=== PATIENT | male | born 1955 | race Caucasian/White ===

== ENCOUNTER 2020-02-25 14:11 | Outpatient (CLI) | payer BC ==
[~2020-02-25 14:11] MED LIST: Magnevist 469MG/ML 20 ML VIAL ONE
--- NOTE | 2020-02-25 16:22 | MRI ---
MR OF THE PELVIS WITH AND WITHOUT CONTRAST INDICATION: 64-year-old male with elevated PSA COMPARISON: None TECHNIQUE: Multiplanar, multisequence MR images were obtained of the pelvis with and without IV contr ast. 20 cc cc of MultiHance was utilized for the examination. The examination was reviewed on a separate [employer] 3-D workstation for multiplanar metric evaluation. FINDINGS: Prostate size: The prostate measured 4.9 x 3.4 x 3.5cm. 29.33 cc. Peripheral zone: No area of restricted diffusion is seen within the peripheral zone. Central zone: There is a 2.3 x 1.5 cm T2 hypointense, ADC hypointense lesion centered within the ante rior transitional zone of the right mid gland that extends into the right anterior fibromuscular stroma. There is abnormal dynamic contrast enhancement associated with this lesion. Neural vasculature: No evidence of neurovascular invasion Regional lymphadenopathy: None Dynamic contrast enhancement: Abnormal as above Osseous structures: No suspicious osseous lesion is identified. Additional findings: None.. IMPRESSION: 1. PIRADS 5- Very High (clinically significant cancer is highly likely to be present.)
== END 2020-02-25 14:12 | disposition home or self-care (01) ==
LOC: TBSIIMAG 14:11
PROVIDERS: ATTEND Urology
DX: R97.20 Elevated prostate specific antigen [PSA] (principal)
CPT/HCPCS: 72197; 82565

== ENCOUNTER 2020-05-05 07:26 | Outpatient (CLI) | payer BC, OTHER ==
[2020-05-05 11:34] LABS: #Basophils 0.1 thou/uL (0.0-0.2); #Eosinphils 0.9 thou/uL (0.0-0.7); #Lymphocytes 2.5 thou/uL (1.20-3.40); #Monocytes 0.8 thou/uL (0.11-0.59); #Neutrophils 4.4 thou/uL (1.40-6.50); %Basophils 1.5 % (0.0-1.0); %Eosinophils 10.8 % (0.0-10.0); %Lymphocytes 28.3 % (21.0-51.0); %Monocytes 8.7 % (0.0-10.0); %Neutrophils 50.7 % (42.0-75.0); Mean Corpuscular Hemoglobin 30.7 pg (27.0-31.0); Mean Platelet Volume 8.5 fL (7.4-10.4); Platelet Count 339 thou/uL (130-400); RBC Distribution Width 12.2 % (11.5-14.5); Red Blood Cell (RBC) Count 5.23 mill/uL (4.70-6.10); White Blood Cell (WBC) Count 8.7 thou/uL (4.8-10.8)
[2020-05-05 11:36] LABS: INR-International Normal Ratio 0.9; PTT 31.6 sec (22.9-36.1); Prothrombin Time 12.4 sec (12.0-14.7)
[2020-05-05 12:09] LABS: Bacteria/HPF None Seen HPF (None Seen); Bilirubin Negative (Negative); Blood, Urine Negative (Negative); Clarity Clear (Clear); Glucose, Urine (Dipstick) Normal (Negative); Ketone, Urine Negative (Negative); Leukocyte Negative Leu/uL (Negative); Nitrite Negative (Negative); Protein, Urine (Dipstick) Negative (Neg-Trace); Specific Gravity, Urine 1.025 (1.002-1.036); Squamous Epithelial None Seen HPF (0-3); Urobilinogen Normal mg/dL (Less than 2); WBC/HPF 0-3 HPF (0-3); pH, Urine 5.5 (5.0-9.0)
[2020-05-05 13:26] LABS: Anion Gap 18 mmol/L (10-20); BUN (Urea Nitrogen) 18 mg/dL (8.4-25.7); Calc. Creatinine Clearance 0 mL/min (70-130); Calcium 9.9 mg/dL (7.8-10.44); Carbon Dioxide 24 mmol/L (23-31); Chloride 103 mmol/L (98-107); Estimated GFR-MDRD 65; Glucose 85 mg/dL (80-115); Potassium 5.1 mmol/L (3.5-5.1); Sodium 140 mmol/L (136-145)
--- NOTE | 2020-05-05 18:06 | EKG ---
Test Reason : Blood Pressure : / mmHG Vent. Rate : 075 BPM Atrial Rate : 075 BPM P-R Int : 148 ms QRS Dur : 100 ms QT Int : 374 ms P-R-T Axes : 075 -20 041 degrees QTc Int : 417 ms Normal sinus rhythm Incomplete right bundle branch block Borderline ECG Confirmed by DR. Dean SOTO ([id number]) on 05/05/2020 6:05:55 PM Referred By: NATASHA Confirmed By:DR. Dean SOTO
[2020-05-05 19:11] LABS: SARS-CoV-2 MS2 Positive; SARS-CoV-2 N Gene Negative; SARS-CoV-2 S Gene Negative; SARS-CoV-2 by NAA Not Detected (NotDetected); SARS-CoV-2 orf1ab Negative
== END 2020-05-05 07:27 | disposition home or self-care (01) ==
LOC: LABBT 07:26
PROVIDERS: ATTEND Urology
DX: Z01.818 Encounter for other preprocedural examination (principal); R97.20 Elevated prostate specific antigen [PSA]; R92.2 Inconclusive mammogram; Z20.828 Contact with and (suspected) exposure to other viral communicable diseases
CPT/HCPCS: 80048; 81001; 85025; 85610; 85730; 87086; 87635; 93005; 93010; U0003

== ENCOUNTER 2020-05-08 06:11 | Day surgery (SDC) | payer BC ==
[2020-05-05 15:32] VITALS: BMI 31.1
[2020-05-08] MEDS ORDERED: cefTRIAXone\\ROCEPHIN 2 GM VIAL ONE (06:16)
[2020-05-08] MEDS ORDERED: Sodium Chloride 0.9% 100 ML ONE (06:16)
[2020-05-08] MEDS ORDERED: Midazolam HCl 2 mg/2 ml Vial ONE (06:37)
[2020-05-08] MEDS ORDERED: Fentanyl 100 MCG/2 ML VIAL ONE (06:37)
[2020-05-08] MEDS ORDERED: Lidocaine 1% (PF) 30 ML VIAL ONE (06:45)
[2020-05-08] MEDS ORDERED: Bupivacaine/Epinephrine 0.25% 30 ML VIAL ONE (06:45)
--- NOTE | 2020-05-08 09:09 | OP ---
DATE OF PROCEDURE: 05/08/2020 SERVICE: Urology. PREOPERATIVE DIAGNOSIS: Elevated PSA. POSTOPERATIVE DIAGNOSIS: Elevated PSA. PROCEDURE PERFORMED: MRI fusion biopsy, x17 biopsies. INDICATION FOR PROCEDURE: Mr. Kelly is a 64-year-old white male who was sent by Dr. Gaxiola for an elevated PSA. His PSA was elevated to approximately 6.9. Dr. Gaxiola did an MRI, which demonstrated a BI-RADS 5 lesion. We had recommended MRI fusion biopsy to ensure targeted biopsies along with standard biopsies. Risks and benefits of the procedure were discussed, and he has agreed to proceed forward. DESCRIPTION OF PROCEDURE: After identification of armband and verification of consent, the patient was brought back to the operating room, where he underwent total intravenous anesthesia. He was then placed in the left lateral decubitus position and positioned with UroNav system overlying the patient. The ultrasound probe was then initially placed into the rectum and the fusion process was carried out in the standard fashion. Once the fusion was completed, the lesion could be identified overlying the prostate. Ultrasound measurements were taken, which demonstrated a length of 3.87 cm with a width of 5.1 cm and a height of 3.9 cm for a volume of 40.2 cm. Targeted biopsies were taken x5 in the area of concern. One of the biopsies were not very good, so we had taken for, but we took a fifth one to ensure that we had adequate tissue specimens. The standard 12-core biopsy was then done in the regular sextant fashion after the targeted biopsies were completed. Upon completion, bleeding was noted to be minimal, the ultrasound probe was removed. The patient was returned back to his original positioning, awakened and taken to Day Stay for recovery in stable condition. COMPLICATIONS: None. ESTIMATED BLOOD LOSS: Minimal. RETAINED TUBES AND DRAINS: None. SPECIMENS: TRUS biopsies x17. DISPOSITION: The patient will be discharged to home and follow up with me in approximately 1 to 2 weeks for biopsy results. Job ID: [id number]
[2020-05-08] MEDS ORDERED: PROPOFOL 200 MG/20 ML VIAL ONE (10:04)
== END 2020-05-08 09:50 | disposition home or self-care (01) ==
LOC: SDC 06:11
PROVIDERS: ATTEND Urology
PROC: 0VB03ZX Excision of Prostate, Percutaneous Approach, Diagnostic (ICD-10-PCS; principal; 2020-05-08)
DX: C61 Malignant neoplasm of prostate (principal); I10 Essential (primary) hypertension; G47.30 Sleep apnea, unspecified; J30.2 Other seasonal allergic rhinitis
CPT/HCPCS: 88305; J0690; J0696; J2001; J2250; J2704; J3010; J3490

== ENCOUNTER 2024-04-13 08:22 | Outpatient (CLI) | payer MEDICARE | END 2024-04-13 08:23 | disposition home or self-care (01) | LOC: BICRAD 08:22 | PROVIDERS: ATTEND Internal Medicine | DX: M54.2 Cervicalgia (principal); M47.812 Spondylosis without myelopathy or radiculopathy, cervical region; C61 Malignant neoplasm of prostate; E78.2 Mixed hyperlipidemia; Z92.29 Personal history of other drug therapy | CPT/HCPCS: 36415; 72040; 80053; 80061; 84153; 84443; 85025 ==

== ENCOUNTER 2024-04-25 08:08 | Outpatient (CLI) | payer MEDICARE ==
[2024-04-25] MEDS ORDERED: Iopamidol 370 76% 100 ML VIAL ONE (11:27)
== END 2024-04-25 08:09 | disposition home or self-care (01) ==
LOC: BICCT 08:08
PROVIDERS: ATTEND Internal Medicine
DX: R10.9 Unspecified abdominal pain (principal)
CPT/HCPCS: 74177; Q9967